=== PATIENT | female | born 1995 | race Native Hawaiian/Other Pacific Islander ===

== ENCOUNTER 2021-02-05 07:31 | Emergency (ER) | payer OTHER ==
[~2021-02-05] VITALS: Ht 160 cm; Wt 85.3 kg
[2021-02-05 07:35] VITALS: TEMP 98.4
[2021-02-05 08:25] LABS: PLATELET COUNT 289 K/uL (152-353)
[2021-02-05 08:39] LABS: POTASSIUM 4.1 mmol/L (3.6-5.2)
[2021-02-05 09:52] VITALS: BP 118/74
== END 2021-02-05 09:52 | disposition home or self-care (01) ==
LOC: ED 07:31
PROVIDERS: Emergency Medicine Emergency Medical Services
DX: K80.20 Calculus of gallbladder without cholecystitis without obstruction (principal)
CPT/HCPCS: 80053; 81000; 83690; 85027; 99283